=== PATIENT | female | born 1985 | race Two or more races ===

== ENCOUNTER 2020-04-04 17:39 | Emergency (ER) | payer OTHER ==
[~2020-04-04] VITALS: Ht 160 cm; Wt 107.5 kg
[2020-04-04] MEDS ORDERED: [UNRECOGNIZED DRUG - OTHER] (18:08)
[2020-04-04] MEDS ORDERED: NAPROXEN375 MG PO (22:41)
[2020-04-04] MEDS ORDERED: PEPCID AC20 MG PO (22:41)
== END 2020-04-05 00:40 | disposition home or self-care (01) ==
LOC: ER 17:39
DX: D25.9 Leiomyoma of uterus, unspecified (principal); N93.8 Other specified abnormal uterine and vaginal bleeding